=== PATIENT | male | born 1940 | race Caucasian/White ===

== ENCOUNTER 2016-08-14 18:40 | Emergency (ER) | payer OTHER ==
--- NOTE | 2016-08-14 18:55 | EDPHY ---
HPI/HX/ROS/PE/MDM Narrative: CHIEF COMPLAINT: "Watery vision" HPI: This patient is a 76-year-old male who presents to the Emergency Department following a brief 2-3 minute episode of right-sided vision changes at 1530 this afternoon while shopping. He describes the vision change as blurriness, "as though his eye was underwater." He denies any additional complaints at that time; no headache, pain to his eye, weakness, numbness, gait or speech changes. At time of presentation, he states that he feels normal and denies any residual vision changes. He was diagnosed with a central retinal vein occlusion in the right eye in May 2016 which was evaluated by an permit coordinator but not treated at that time. The CRVO presented with eye floaters; he describes today's episode as very different. REVIEW OF SYSTEMS: Aside from elements discussed in the HPI, a comprehensive 10-point review of systems was reviewed and is negative. PMH: 1. Central retinal vein occlusion, May 2016 2. Hypothyroid No history of diabetes. SOCIAL HISTORY: at bedside. Retired physicist. PHYSICAL EXAM: General:Patient is alert, in no acute distress. ENT:Eyes are normal to inspection. ENT inspection normal. Neck: Normal inspection. Full range of motion. Respiratory:No respiratory distress. Breath sounds normal bilaterally. Cardiovascular: Regular rate and rhythm. Strong peripheral pulses. Normal cap refill. Abdomen:The abdomen is nontender to palpation. There are no peritoneal signs. There are normal bowel sounds. Back: Normal to inspection. No tenderness to palpation. Skin: Normal color. No rash. Warm and dry. Extremities: Normal appearance. Full range of motion. Neuro: Oriented x3. Normal motor function. Normal sensory function. ED Course: This 76-year-old male presents following brief episode of right vision change this afternoon since subsided. He has no neurological deficits on exam. EOMI, pupils are equal, round and reactive. I discussed with him that he likely did not experience a TIA - the concern which prompted him to present to the ED - given that he did not have a right visual field cut at the time of his complaint. Given the patient's history of central retinal vein occlusion to the same eye, I will proceed with consultation with on-call permit coordinator to determine next steps. 191: Consultation with Dr. Cooley, ophthalmology, who recommends obtaining an ESR and CRP. Labs obtained. CRP is negative. ESR at 5, hematocrit at 43.7. I discussed lab results and follow-up instructions with the patient. The patient has a follow-up with his permit coordinator scheduled for later this month. He will call his permit coordinator tomorrow. He will be discharged home in good condition with customary return precautions. - Data Points Laboratory Results: Laboratory Results 08/14/16 19:24 08/14/16 08/14/16 19:24 19:24 Hct 43.7 % % (40.0-51.0) ESR 5 MM/HR MM/HR (0-20) C-Reactive Protein < 5.0 mg/L mg/L (<10.0) General Time Seen by Provider: 08/14/16 18:54 Initial Vital Signs: Initial Vital Signs Temperature (C) 36.6 C 08/14/16 18:45 Heart Rate 88 08/14/16 18:45 Respiratory Rate 14 08/14/16 18:45 Blood Pressure 124/89 H 08/14/16 18:45 O2 Sat (%) 96 08/14/16 18:45 O2 Delivery Mode Room Air Allergies/Adverse Reactions: No Known Allergies Allergy (Unverified 07/20/09 15:12) Home Medications: Medication Instructions Recorded [facility] 04/21/10 Departure - Departure Disposition: Home, Routine, Self-Care Clinical Impression: Vision changes Condition: Good Instructions: Blurred Vision (ED) Additional Instructions: 1. Call your permit coordinator tomorrow to discuss scheduling a follow-up appointment for reevaluation. 2. Return to the Emergency Department with headache, numbness or weakness, recurrence of your blurred vision, or for other serious concerns. Referrals: Saud Yee MD [Primary Care Provider] - As per Instructions Report Scribed for: Charles Duffy Report Scribed by: Bonnie Kaiser Date of Report: 08/14/16 Time of Report: 18:55 Physician Review and Approval Statement: Portions of this note were transcribed by an ED scribe. I personally performed the history, physical exam, and medical decision making; and confirm the accuracy of the information in the transcribed note.
[2016-08-14 19:31] LABS: HEMATOCRIT 43.7 % (40.0-51.0)
[2016-08-14 20:08] VITALS: BP 121/80; PULSE 70; RESP 16; TEMP 98.1; O2SAT 97
== END 2016-08-14 20:08 | disposition home or self-care (01) ==
DX: H57.8 Other specified disorders of eye and adnexa (principal)

== ENCOUNTER 2017-10-10 10:09 | Day surgery (SDC) | payer OTHER ==
[2017-10-10] MEDS ORDERED: HEPARIN 10,000 UNIT/10 ML MDV (1,000 UNIT/ML) IVP PRN (10:16)
[2017-10-10] MEDS ORDERED: fentaNYL 100 MCG/2 ML INJ IVP PRN (10:16)
[2017-10-10] MEDS ORDERED: GLUCAGON HCL 1 MG VIAL IVP PRN (10:16)
[2017-10-10] MEDS ORDERED: MIDAZOLAM 2 MG/2 ML VIAL IVP PRN (10:16)
[2017-10-10] MEDS ORDERED: PROTAMINE SULFATE 50 MG/5 ML VIAL IVP PRN (10:16)
[2017-10-10] MEDS ORDERED: ALTEPLASE 2 MG VIAL IVP PRN (10:16)
[2017-10-10] MEDS ORDERED: FLUMAZENIL 0.5 MG/5 ML MDV IVP PRN (10:16)
[2017-10-10] MEDS ORDERED: MEPERIDINE 25 MG/ML SYR IVP PRN (10:16)
[2017-10-10] MEDS ORDERED: NALOXONE HCL 0.4 MG/ML INJ IVP PRN (10:16)
[2017-10-10] MEDS ORDERED: FLUMAZENIL 0.5 MG/5 ML MDV IVP ONE (10:19)
[2017-10-10] MEDS ORDERED: MIDAZOLAM 2 MG/2 ML VIAL ONE (10:19)
[2017-10-10] MEDS ORDERED: NALOXONE HCL 0.4 MG/ML INJ ONE (10:19)
[2017-10-10] MEDS ORDERED: fentaNYL 100 MCG/2 ML INJ ONE (10:19)
[2017-10-10] MEDS ORDERED: NS 1,000 ML IV SCH (10:30)
--- NOTE | 2017-10-10 11:20 | PDGENHP ---
History & Physical Chief Complaint: RETROPERITONEAL LN History of Present Illness: INCIDENTAL FINDING OF ENLARGED RETROPERITONEAL LN. Pertinent Past, Social, Family History: H/O SQUAMOUS CELL CARCINOMA OF SKIN, PAPILLARY THYROID CANCER S/P THYROIDECTOMY. RT HAND SURGERY Relevant Physical Exam: LARGEST LN IS ON LT SIDE OF AORTA. Cardiorespiratory Assessment: RRR, CTA
--- NOTE | 2017-10-10 11:25 | PDPROPOC ---
Sedation Plan of Care Sedation Plan of Care: vital signs stable, mental status noted, patient educated of risks, benefits, alternatives, patient can tolerate sedation ASA Classification: ASA 3 Planned drugs: fentanyl, midazolam Mallampati Score: Class 1 Mallampati Reference Image: Patient passed 3-3-2 rule?: Yes
[2017-10-10] MEDS ORDERED: ONDANSETRON 4 MG/2 ML VIAL IVP PRN (12:56)
[2017-10-10] MEDS ORDERED: ACETAMINOPHEN 325 MG TAB PO PRN (12:56)
--- NOTE | 2017-10-10 12:56 | PDRADPN ---
Radiology Procedure Note Date of Procedure: 10/10/17 Radiologist: Ana Nettles Anesthesia: IV Sedation Pre-op Diagnosis: enlarged lymph nodes Post-op Diagnosis: same Indication: unknown cause Procedure: CT guided retroperitoneal LN biopsy Inf/Abcess present in the surg proc area at time of surgery?: No
[2017-10-10 14:03] VITALS: BP 99/70
== END 2017-10-10 14:18 | disposition home or self-care (01) ==
LOC: FIMAGING 10:09
PROVIDERS: ATTEND Specialist
PROC: 07BB4ZX Excision of Mesenteric Lymphatic, Percutaneous Endoscopic Approach, Diagnostic (ICD-10-PCS; principal; 2017-10-10 12:58)
DX: R59.9 Enlarged lymph nodes, unspecified (principal); Z85.828 Personal history of other malignant neoplasm of skin; Z85.850 Personal history of malignant neoplasm of thyroid
CPT/HCPCS: 88184-90; 88185-91; J2250; J2310; J3010

== ENCOUNTER 2018-05-21 17:39 | Inpatient (IN) | payer BC, OTHER ==
--- NOTE | 2018-05-21 18:19 | EDPHY ---
H & P Stated Complaint: slurred speech yesterday Time Seen by Provider: 05/21/18 18:05 HPI/ROS: CHIEF COMPLAINT: Slurred speech yesterday HISTORY OF PRESENT ILLNESS: The patient is a 77-year-old man who developed slurred speech yesterday for about 15 min. It resolved spontaneously. He states that he was doing Pilates when he was looking up and felt vertiginous. He states that this is not unusual for him but that soon thereafter he developed slurred speech. No aphasia. No facial weakness or numbness. No arm or leg involvement. No vision changes. His symptoms resolved after 15 min. No history of cardiac disease or arrhythmias. No history of vascular disease. 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 Severity: Moderate Modifying factors: Resolved spontaneously REVIEW OF SYSTEMS: Constitutional: denies: chills, fever, recent illness, recent injury EENTM: denies: blurred vision, double vision, nose congestion Respiratory: denies: cough, shortness of breath Cardiac: denies: chest pain, irregular heart rate, lightheadedness, palpitations Gastrointestinal/Abdominal: denies: abdominal pain, diarrhea, nausea, vomiting, blood streaked stools Genitourinary: denies: dysuria, frequency, hematuria, pain Musculoskeletal: denies: joint pain, muscle pain Skin: denies: lesions, rash, jaundice, bruising Neurological: See HPI denies: headache, numbness, paresthesia, tingling, dizziness, weakness Hematologic/Lymphatic: denies: blood clots, easy bleeding, easy bruising Immunologic/allergic: denies: HIV/AIDS, transplant 10 systems reviewed and negative except as noted EXAM: GENERAL: Well-appearing, well-nourished and in no acute distress. HEAD: Atraumatic, normocephalic. EYES: Pupils equal round and reactive to light, extraocular movements intact, sclera anicteric, conjunctiva are normal. ENT: TMs normal, nares patent, oropharynx clear without exudates. Moist mucous membranes. NECK: Normal range of motion, supple without lymphadenopathy or JVD. LUNGS: Breath sounds clear to auscultation bilaterally and equal. No wheezes rales or rhonchi. HEART: Regular rate and rhythm without murmurs, rubs or gallops. ABDOMEN: Soft, nontender, normoactive bowel sounds. No guarding, no rebound. No masses appreciated. BACK: No CVA tenderness, no spinal tenderness, step-offs or deformities EXTREMITIES: Normal range of motion, no pitting or edema. No clubbing or cyanosis. NEUROLOGICAL: Cranial nerves II through XII grossly intact. Normal speech, normal gait. 5/5 strength, normal movement in all extremities, normal sensation , normal reflexes PSYCH: Normal mood, normal affect. SKIN: Warm, dry, normal turgor, no visible rashes or lesions. Source: Patient Exam Limitations: No limitations - Personal History Current Tetanus/Diphtheria Vaccine: Yes Current Tetanus Diphtheria and Acellular Pertussis (TDAP): Yes - Medical/Surgical History Hx Asthma: No Hx Chronic Respiratory Disease: No Hx Diabetes: No Hx Cardiac Disease: No Hx Renal Disease: No Hx Cirrhosis: No Hx Alcoholism: No Hx HIV/AIDS: No Hx Splenectomy or Spleen Trauma: No Other PMH: thyroidectomy, diverticulosis - Family History Significant Family History: No pertinent family hx - Social History Smoking Status: Never smoked Alcohol Use: None Constitutional: Initial Vital Signs Temperature (C) 36.9 C 05/21/18 17:56 Heart Rate 71 05/21/18 17:56 Respiratory Rate 16 05/21/18 17:56 Blood Pressure 130/104 H 05/21/18 17:56 O2 Sat (%) 96 05/21/18 17:56 O2 Delivery Mode Room Air Allergies/Adverse Reactions: No Known Allergies Allergy (Verified 05/21/18 17:54) Home Medications: Medication Instructions Recorded Calcium Carbonate 1,000 mg PO DAILY 10/03/17 Cholecalciferol Vit D3 [Vitamin D3 1,000 iunits PO HS 10/03/17 (*)] Citrucel 1 tbs PO BID 10/03/17 Levothyroxine [Synthroid 75 mcg 75 mcg PO HS 10/03/17 (*)] Omeprazole 20 mg PO HS 10/03/17 Sildenafil Citrate 100 mg PO VALENCIA 10/03/17 Calcium Carbonate [Tums 500MG (*)] 1,000 mg PO HS 05/21/18 Medical Decision Making - Diagnostics EKG Interpretation: An EKG obtained and was read and documented in trace view. Please see trace view for full reading and report. Sinus rhythm, no acute ischemic changes Imaging Results: Imaging Impressions Brain MRI 05/21/18 18:14 Impression: 1. Recent infarcts involving right frontal lobe with single cortical infarct right parietal lobe as detailed above. These are in the MCA distribution and probably represent embolic phenomenon. 2. No additional intracranial abnormality seen. If symptoms worsen, additional imaging may be necessary. Findings discussed with Mykel Hobbs M.D. at 20:26 hour, 05/21/2018. Head MRA 05/21/18 18:24 Impression: Normal MRA of the [place] as detailed above. Findings discussed with Mykel Hobbs M.D. at 20:26 hour, 05/21/2018. Neck MRA 05/21/18 18:24 Impression: 1. Normal MRA of the carotid and vertebral system. Incidental tortuosity of the distal ICA bilaterally. Note: All stenosis measurements are based on NASCET criteria. Findings discussed with Mykel Hobbs M.D. at 20:26 hour, 05/21/2018. Imaging: Discussed imaging studies w/ motorcyles final inspector Radiologist ED Course/Re-evaluation: I did [facility] [place] hospitalist because of the patient's vertigo when looking up. He states that this is typical for him associates it with BPV. Will obtain MRA of his neck. If this is clear he is safe for outpatient workup with echocardiogram etc. 8:40 p.m. the patient has 4 or 5 subcortical infarcts on right MCA distribution. He remains asymptomatic and has been eating lucian 4s in the room. I spoke with Dr. Liao who will admit for further workup. I have paged Neurosurgery to discussed possibility anticoagulation. 8:50 p.m. I discussed the case with [facility]. They do not recommend anticoagulants at this time. Differential Diagnosis: Partial list of the Differential diagnosis considered include but were not limited to; TIA, CVA, carotid artery thrombus and although unlikely based on the history and physical exam, I also considered endocarditis, cancer. - Data Points Laboratory Results: Laboratory Results 05/21/18 18:34 05/21/18 18:34 05/21/18 05/21/18 05/21/18 19:05 18:37 18:34 WBC RBC Hgb POC Hgb 15.3 gm/dL gm/dL (13.7-17.5) Hct POC Hct 45 % % (40-51) MCV MCH MCHC RDW Plt Count MPV Neut % (Auto) Lymph % (Auto) [place] % (Auto) Eos % (Auto) Baso % (Auto) Nucleat RBC Rel Count Absolute Neuts (auto) Absolute Lymphs (auto) Absolute Monos (auto) Absolute Eos (auto) Absolute Basos (auto) Absolute Nucleated RBC Immature Gran % Immature Gran # PT INR POC Sodium 142 mEq/L mEq/L (135-145) Sodium 135 mEq/L mEq/L (135-145) POC Potassium 3.8 mEq/L mEq/L (3.3-5.0) Potassium 4.0 mEq/L mEq/L (3.5-5.2) POC Chloride 105 mEq/L mEq/L (97-110) Chloride 106 mEq/L mEq/L (97-110) Carbon Dioxide 23 mEq/l mEq/l (22-31) POC Total CO2 25 mEq/L mEq/L (22-31) Anion Gap 6 mEq/L mEq/L (6-14) POC BUN 20 mg/dL mg/dL (7-23) BUN 22 mg/dL mg/dL (7-23) Creatinine 1.0 mg/dL mg/dL (0.7-1.3) POC Creatinine 1.0 mg/dL mg/dL (0.7-1.3) Estimated GFR > 60 Glucose 98 mg/dL mg/dL (70-100) POC Glucose 101 mg/dL H mg/dL (70-100) Calcium 9.1 mg/dL mg/dL (8.5-10.4) POC Troponin I 0.00 ng/mL ng/mL (0.00-0.08) 05/21/18 05/21/18 18:34 18:34 WBC 5.09 10^3/uL 10^3/uL (3.80-9.50) RBC 4.75 10^6/uL 10^6/uL (4.40-6.38) Hgb 15.1 g/dL g/dL (13.7-17.5) POC Hgb Hct 44.4 % % (40.0-51.0) POC Hct MCV 93.5 fL fL (81.5-99.8) MCH 31.8 pg pg (27.9-34.1) MCHC 34.0 g/dL g/dL (32.4-36.7) RDW 13.7 % % (11.5-15.2) Plt Count 200 10^3/uL 10^3/uL (150-400) MPV 9.8 fL fL (8.7-11.7) Neut % (Auto) 72.3 % % (39.3-74.2) Lymph % (Auto) 13.0 % L % (15.0-45.0) Gregory % (Auto) 10.6 % % (4.5-13.0) Eos % (Auto) 2.9 % % (0.6-7.6) Baso % (Auto) 1.0 % % (0.3-1.7) Nucleat RBC Rel Count 0.0 % % (0.0-0.2) Absolute Neuts (auto) 3.68 10^3/uL 10^3/uL (1.70-6.50) Absolute Lymphs (auto) 0.66 10^3/uL L 10^3/uL (1.00-3.00) Absolute Monos (auto) 0.54 10^3/uL 10^3/uL (0.30-0.80) Absolute Eos (auto) 0.15 10^3/uL 10^3/uL (0.03-0.40) Absolute Basos (auto) 0.05 10^3/uL 10^3/uL (0.02-0.10) Absolute Nucleated RBC 0.00 10^3/uL 10^3/uL (0-0.01) Immature Gran % 0.2 % % (0.0-1.1) Immature Gran # 0.01 10^3/uL 10^3/uL (0.00-0.10) PT 13.2 SEC SEC (12.0-15.0) INR 1.04 (0.83-1.16) POC Sodium Sodium POC Potassium Potassium POC Chloride Chloride Carbon Dioxide POC Total CO2 Anion Gap POC BUN BUN Creatinine POC Creatinine Estimated GFR Glucose POC Glucose Calcium POC Troponin I Medications Given: Levothyroxine Sodium (Synthroid) 75 mcg PO HS IVIS Stop: 11/17/18 21:59 Last Admin: 05/21/18 22:36 Dose: 75 mcg Point of Care Test Results: Chemistry 05/21/18 05/21/18 19:05 18:37 POC Sodium 142 mEq/L mEq/L (135-145) POC Potassium 3.8 mEq/L mEq/L (3.3-5.0) POC Chloride 105 mEq/L mEq/L (97-110) POC Total CO2 25 mEq/L mEq/L (22-31) POC BUN 20 mg/dL mg/dL (7-23) POC Creatinine 1.0 mg/dL mg/dL (0.7-1.3) POC Glucose 101 mg/dL H mg/dL (70-100) POC Troponin I 0.00 ng/mL ng/mL (0.00-0.08) ISTAT H&H 05/21/18 18:37 POC Hgb 15.3 gm/dL gm/dL (13.7-17.5) POC Hct 45 % % (40-51) Departure - Departure Disposition: [facility] Inpatient Acute Clinical Impression: Acute ischemic stroke Condition: Fair
[2018-05-21] MEDS ORDERED: GADOBUTROL 10 ML VIAL IVP ONE (18:28)
--- NOTE | 2018-05-21 18:41 | CPEKG ---
Test Reason : OPEN Blood Pressure : / mmHG Vent. Rate : 078 BPM Atrial Rate : 078 BPM P-R Int : 212 ms QRS Dur : 089 ms QT Int : 415 ms P-R-T Axes : 059 062 069 degrees QTc Int : 473 ms Sinus rhythm Atrial premature complex Confirmed by Evelio Fontana ([id number]) on 05/21/2018 6:39:59 PM Referred By: EVELIO FONTANA Confirmed By:Evelio Fontana
[2018-05-21 18:46] LABS: PLATELET COUNT 200 10^3/uL (150-400)
[2018-05-21 19:04] LABS: INR 1.04 (0.83-1.16); PROTIME(PATIENT) 13.2 SEC (12.0-15.0)
[2018-05-21] MEDS ORDERED: oxyCODONE IR 5 MG TAB PO PRN (21:41)
[2018-05-21] MEDS ORDERED: HYDROmorphONE/DILAUDID 1 MG/ML INJ IVP PRN (21:41)
[2018-05-21] MEDS ORDERED: ONDANSETRON DISINTEGRATING 4 MG TAB PO PRN (21:41)
[2018-05-21] MEDS ORDERED: ACETAMINOPHEN 325 MG TAB PO PRN (21:41)
[2018-05-21] MEDS ORDERED: ONDANSETRON 4 MG/2 ML VIAL IVP PRN (21:41)
[2018-05-21] MEDS ORDERED: HYDROCODONE/APAP 5/325 TAB PO PRN (21:41)
[2018-05-21] MEDS ORDERED: LEVOTHYROXINE 75 MCG TAB PO SCH (22:00)
--- NOTE | 2018-05-21 22:51 | PDGENHP ---
History and Physical - Chief Complaint slurred speech - History of Present Illness 77 yo M with PMH of thyroid cancer, BPH and GERD presenting with complaints of slurred speech yesterday for about 15 minutes that has since resolved. He notes he was doing pilates exercises and felt fine, shortly after that he was looking up to fix a clock and became vertiginous after that. He notes that frequently when he leans his head back like that he will get an episode of vertigo. He went to find his and tell her about his symptoms and then had issues with inability to speak--he notes he knew what he wanted to say but his speech came out garbled and nonsensical. This lasted about 15 minutes and resolved. He states the remainder of the evening he felt fine-he went shopping, had sex with his and no other issues were noticed. He denies any recurrent symptoms today. He has not had any weakness or numbness anywhere, or chest pain, sob, fever, chills etc. History Information - Allergies/Home Medication List Allergies/Adverse Reactions: No Known Allergies Allergy (Verified 05/21/18 17:54) Home Medications: Calcium Carbonate 1,000 mg PO DAILY 10/03/17 [Last Taken 10/09/17] Cholecalciferol Vit D3 [Vitamin D3 (*)] 1,000 iunits PO HS 10/03/17 [Last Taken 05/20/18] Citrucel 1 tbs PO BID 10/03/17 [Last Taken 10/09/17] Levothyroxine [Synthroid 75 mcg (*)] 75 mcg PO HS 10/03/17 [Last Taken 05/20/18] Omeprazole 20 mg PO HS 10/03/17 [Last Taken 05/20/18] Sildenafil Citrate 100 mg PO VALENCIA 10/03/17 [Last Taken 05/20/18] Calcium Carbonate [Tums 500MG (*)] 1,000 mg PO HS 05/21/18 [Last Taken 05/20/18] I have personally reviewed and updated: family history, medical history, social history, surgical history - Past Medical History cancer (thyroid and skin), GERD Additional medical history: BPH. kidney stones. hypothyroid - Surgical History Reports: appendectomy, cancer surgery (partial thyroidectomy) Additional surgical history: vasectomy. pilonidal cyst removal - Family History Positive for: non-pertinent - Social History Smoking Status: Never smoked Alcohol Use: Occasionally Drug Use: None Additional social history: , lives with Review of Systems Review of Systems: ROS: 10pt was reviewed & negative except for what was stated in HPI & below Physical Exam Physical Exam: Temp Pulse Resp BP Pulse Ox 36.9 C 90 20 132/78 H 94 05/21/18 17:56 05/21/18 20:50 05/21/18 20:50 05/21/18 20:50 05/21/18 20:50 Constitutional: no apparent distress, appears nourished Eyes: PERRL, anicteric sclera Ears, Nose, Mouth, Throat: moist mucous membranes, hearing normal Cardiovascular: regular rate and rhythym, no murmur, rub, or gallop, No edema Respiratory: no respiratory distress, no rales or rhonchi Gastrointestinal: normoactive bowel sounds, soft, non-tender abdomen Genitourinary: no bladder tenderness Skin: warm, normal color Musculoskeletal: full muscle strength Neurologic: AAOx3 Psychiatric: interacting appropriately, not anxious, not encephalopathic Lab Data & Imaging Review 05/21/18 18:34 05/21/18 18:34 WBC 5.09 10^3/uL (3.80-9.50) 05/21/18 18:34 RBC 4.75 10^6/uL (4.40-6.38) 05/21/18 18:34 Hgb 15.1 g/dL (13.7-17.5) 05/21/18 18:34 POC Hgb 15.3 gm/dL (13.7-17.5) 05/21/18 18:37 Hct 44.4 % (40.0-51.0) 05/21/18 18:34 POC Hct 45 % (40-51) 05/21/18 18:37 MCV 93.5 fL (81.5-99.8) 05/21/18 18:34 MCH 31.8 pg (27.9-34.1) 05/21/18 18:34 MCHC 34.0 g/dL (32.4-36.7) 05/21/18 18:34 RDW 13.7 % (11.5-15.2) 05/21/18 18:34 Plt Count 200 10^3/uL (150-400) 05/21/18 18:34 MPV 9.8 fL (8.7-11.7) 05/21/18 18:34 Neut % (Auto) 72.3 % (39.3-74.2) 05/21/18 18:34 Lymph % (Auto) 13.0 % (15.0-45.0) L 05/21/18 18:34 [place] % (Auto) 10.6 % (4.5-13.0) 05/21/18 18:34 Eos % (Auto) 2.9 % (0.6-7.6) 05/21/18 18:34 Baso % (Auto) 1.0 % (0.3-1.7) 05/21/18 18:34 Nucleat RBC Rel Count 0.0 % (0.0-0.2) 05/21/18 18:34 Absolute Neuts (auto) 3.68 10^3/uL (1.70-6.50) 05/21/18 18:34 Absolute Lymphs (auto) 0.66 10^3/uL (1.00-3.00) L 05/21/18 18:34 Absolute Monos (auto) 0.54 10^3/uL (0.30-0.80) 05/21/18 18:34 Absolute Eos (auto) 0.15 10^3/uL (0.03-0.40) 05/21/18 18:34 Absolute Basos (auto) 0.05 10^3/uL (0.02-0.10) 05/21/18 18:34 Absolute Nucleated RBC 0.00 10^3/uL (0-0.01) 05/21/18 18:34 Immature Gran % 0.2 % (0.0-1.1) 05/21/18 18:34 Immature Gran # 0.01 10^3/uL (0.00-0.10) 05/21/18 18:34 PT 13.2 SEC (12.0-15.0) 05/21/18 18:34 INR 1.04 (0.83-1.16) 05/21/18 18:34 POC Sodium 142 mEq/L (135-145) 05/21/18 18:37 Sodium 135 mEq/L (135-145) 05/21/18 18:34 POC Potassium 3.8 mEq/L (3.3-5.0) 05/21/18 18:37 Potassium 4.0 mEq/L (3.5-5.2) 05/21/18 18:34 POC Chloride 105 mEq/L (97-110) 05/21/18 18:37 Chloride 106 mEq/L (97-110) 05/21/18 18:34 Carbon Dioxide 23 mEq/l (22-31) 05/21/18 18:34 POC Total CO2 25 mEq/L (22-31) 05/21/18 18:37 Anion Gap 6 mEq/L (6-14) 05/21/18 18:34 POC BUN 20 mg/dL (7-23) 05/21/18 18:37 BUN 22 mg/dL (7-23) 05/21/18 18:34 Creatinine 1.0 mg/dL (0.7-1.3) 05/21/18 18:34 POC Creatinine 1.0 mg/dL (0.7-1.3) 05/21/18 18:37 Estimated GFR > 60 05/21/18 18:34 Glucose 98 mg/dL (70-100) 05/21/18 18:34 POC Glucose 101 mg/dL (70-100) H 05/21/18 18:37 Calcium 9.1 mg/dL (8.5-10.4) 05/21/18 18:34 POC Troponin I 0.00 ng/mL (0.00-0.08) 05/21/18 19:05 Visualized and Interpreted imaging results: Yes Interpretation: head/neck MRA: normal. brain MRI: 4 subacute infarcts in MCA distribution Visualized and Interpreted EKG results: Yes EKG Interpretation: Positive for: normal sinsus rhythm EKG additional interpertation: ventricular trigeminy Assessment & Plan Assessment: Acute ischemic stroke (Acute) 77 yo M with PMH of thyroid cancer presenting with episode of dysphasia yesterday found to have subacute cva # acute/subacute CVA: with 4 ischemic foci in MCA distribution c/w embolic phenomena. No significant vascular findings on head/neck MRA. Tele monitoring notable for irregular rhythm but on ECG not consistent with a fib--sinus arrhytmia and ventrigular trigeminy noted. Given aspirin, will monitor on tele, obtain echo in am, neurology consulted, pt/ot. Sxs currently are not present. # htn: very mild increase in BP so far, will monitor # thyroid cancer: s/p thyroidectomy, followed by oncology # GERD: continue PPI # IP status, given stroke will require > 48 hours stay for eval/mgmt of above Patient new to my care. Old records reviewed ad summarized as above. CAre plan reviewed with ER doctor, further hx obtained from patients present at bedside.
--- NOTE | 2018-05-22 07:08 | PDMN ---
Medical Necessity Medical necessity: Pt meets inpt criteria per MD order and [facility] M-83, Stroke: Ischemic, 2 days. 77 y/o presenting w/episode of dysphasia found to have acute/ subacute CVA: 4 ischemic foci in MCA distribution consistent w/embolic phenomena , SR w/ventricular trigeminy on tele. Anticipate>2MN form ongoing eval/ management of above.
[2018-05-22] MEDS ORDERED: ASPIRIN 81 MG CHEWABLE TAB PO SCH (09:00)
[2018-05-22] MEDS ORDERED: ENOXAPARIN 40 MG/0.4 ML SYR SC SCH (09:00)
[2018-05-22] MEDS ORDERED: PANTOPRAZOLE SODIUM 40 MG TAB PO SCH (09:00)
--- NOTE | 2018-05-22 10:16 | GCON ---
[f rep st] CONSULTATION NEUROLOGY CONSULT REFERRING PHYSICIAN: Meghan Lockwood MD CHIEF COMPLAINT: Stroke. HISTORY OF PRESENT ILLNESS: The patient is a very pleasant gentleman who does not take any antiplatelet therapy daily. He is on a PPI and thyroid medication. Monday morning after doing Pilates with his , several minutes had passed, and he then felt a little vertigo when hanging or adjusting a wall clock higher up. This is not unusual for him; however, afterwards, he developed slurred speech apparently for 15 minutes, but it spontaneously resolved. He did not think much of this but then decided to come to the ER around 36 hours later last night at 6 p.m. He was completely asymptomatic for the last 36 hours and had a full evaluation. [facility] was also consulted. Essentially, as the patient was 36 hours after the initial symptoms , therefore thrombolysis was not indicated. He did have an MRI brain, which showed recent multiple small infarcts in the right frontal and right parietal lobe. MRA of the head and neck was negative. He has been on telemetry overnight, and apparently, there has been no atrial fibrillation. He does not have any significant risk factors in terms of being a heavy drinker, obstructive sleep apnea, or previous coronary disease. He denies palpitations. Echo has been done and is pending. He is completely asymptomatic now and feels well. REVIEW OF SYSTEMS: 10-point review of systems was done only pertinent to the HPI. For past medical history, social history, family history, home medication, allergies, see Dr. Lockwood's note. PHYSICAL EXAM: VITAL SIGNS: Blood pressure is 117/69, temperature 36.7, heart rate in the 70s. GENERAL: Patient is awake and alert, very pleasant gentleman. HIGHER MENTAL FUNCTION: He is lucid. No aphasia. Names 5/5, follows commands 5/5, repeats 5/5. Cranial nerve exam normal 2 through 7, 11, and 12. MOTOR: He has normal strength throughout. He did have some mild weakness with the left shoulder, external rotation, but that, he thinks, is from his previous shoulder surgery. There is no other focal weakness detected. Muscle tone is normal. SENSORY: Normal throughout. COORDINATION: Normal. IMPRESSION/PLAN: 1. Cryptogenic Stroke. Overall, my impression is he had a proximal embolus, which probably was occluding a larger vessel for those 15 minutes he was symptomatic, and then, he autolysed the clot with resolution of symptoms. The debris of the clot then likely caused the small multifocal, silent cortical infarcts. We discussed at length. He has been started on aspirin 325 mg daily, coated, with meals. We discussed risks, benefits, and alternatives of medication. His LDL is above 70. Therefore, statin therapy is also recommended. He has had a echocardiogram this morning. Results are pending. If there are any significant abnormalities, please contact Neurology service to review. If there is no significant abnormality, then he can likely be discharged home with outpatient cardiology followup for a 30-day event monitor. If the 30-day event monitor is negative for paroxysmal atrial fibrillation, then an implantable property assessment monitor would be indicated for cryptogenic stroke. I will see him back in the office in 8-10 weeks to review all of the above. We will continue to follow as needed while the patient is in the hospital. Please do not hesitate to call if there are any questions or change in neurologic status of this patient. Seventy total minutes floor time; over 50% counseling and coordination of care. /[id number]/MODL MTDD
--- NOTE | 2018-05-22 13:36 | GDS ---
[f rep st] DISCHARGE SUMMARY DISCHARGE DIAGNOSES: 1. Cryptogenic stroke. 2. Hypertension. 3. Thyroid cancer. CONSULTATIONS: Ron Bourgeois MD, Neurology. STUDIES AND PROCEDURES DONE: 1. MRA of the neck and head. 2. Brain MRI. 3. Echocardiogram. PHYSICAL EXAM: GENERAL: The patient is alert. VITAL SIGNS: Afebrile at 36.6, pulse 83, respirator y rate 25, blood pressure 97/62, and saturating 93% on room air. I have seen and evaluated the patie nt on the day of discharge. HOSPITAL COURSE: The patient is a 77-year-old male, who presented to the emergency room with complai nts of vertigo-like symptoms and slurred speech. He was evaluated during this hospitalization and di agnosed with: 1. Cryptogenic stroke. MRA of the head and neck were performed, as well as an MRI of the brain. He has no residual symptoms. He has been started on a regular aspirin. It has been recommended that h e start on a statin. However, he wishes to decline at this time and follow with his primary care lula haro. Echocardiogram was performed. The patient will have a cardiac exercise physiologist device arranged prior to the disposition to assure he does not suffer from any underlying arrhythmias. He will follow shilpa Bourgeois in the outpatient setting. 2. Hypertension. This is stable. 3. Thyroid cancer. He is followed by Outpatient Oncology. DISPOSITION: The patient will be discharged home independently with his . Pending studies at th e time of disposition include echocardiogram. DISCHARGE MEDICATIONS: Please refer to EMR form. I have started the patient on a regular aspirin. He has declined statin therapy at this time. FOLLOWUP: Followup will be with his primary care doctor, Saud Hernandez, as well as Dr. Ron thompson nd Cardiology. I have discussed the patient's disposition with Dr. Bourgeois, as well as Cardiology, who a re both in agreement with this plan. TIME SPENT ON DISCHARGE: I have spent greater than 35 minutes in the care, coordination, and managem ent of this patient's discharge. /[id number]/MODL
--- NOTE | 2018-05-22 15:09 | ECHO ---
[email or web address] [address] Main: [phone] Echocardiography Examination Transthoracic Name: SEJAL MCCRAY MR#: [id number] Study Date: 05/22/2018 Study Time: 08:51 AM Date of : 1940 Age: 77 year(s) Height: 188 cm (74 in.) Weight: 88.91 kg (196 lb.) BSA: 2.15 m2 Gender: Male Examination: Echo with Agitated Saline Contrast: Image Quality: Adequate Rhythm: Heart Rate: 80 bpm BP: 117 mmHg/69 mmHg Indication: Ischemic Stroke Procedure Staff Referring Physician: [employer] Business Representative: Megan Strong [facility] Reading Physician: Brandon Dial MD Requesting Provider: Indication: Ischemic Stroke Measurements Chambers AV/MV Label Value Normal Value Label Value Normal Value IVSd, 2D 1.2 cm (0.6cm - 1.1cm) AR PHT 0.56 s LVDd, 2D 4.5 cm (4.2cm - 5.9cm) AR PHT 563 ms LVDs, 2D 2.9 cm (2.1cm - 4cm) AR Vmax 4.4 m/s LVEF, 2D 63 % (54% - 74%) AV PGmax 5 mmHg LVEF, BP 59 % (55% - 70%) AV PGmean 3 mmHg LVEF, MOD2 65 % (55% - 70%) AV Vmax 1.15 m/s LVEF, MOD4 57 % (55% - 70%) CEE D (continuity eq. 3 cm2 LVOT PGmean 2 mmHg VTI) LVOT Vmean 0.73 m/s MV A Vmax 1.36 m/s LVOTd 2 cm (1.9cm - 2.1cm) MV DT 232 ms LVPWd, 2D 1.3 cm (0.6cm - 1cm) MV E' lateral 0.08 m/s RVDd, 2D 4.2 cm (1.9cm - 3.8cm) MV E' mean 0.06 m/s LADs, 2D 4 cm (3cm - 4cm) MV E' septal 0.05 m/s LAESV index, MOD2 27.9 ml/m2 MV E Vmax 0.63 m/s RA Area 29.8 cm2 MV E/A 0.46 Additional Vessels MV E/E' lateral 8 Label Value Normal Value MV E/E' mean 9.69 AoAsc 3.6 cm MV E/E' septal 12.2 (0.45 - 1.25) AoRoot, 2D 3.4 cm (1.4cm - 2.6cm) MV PGmax 9 mmHg IVC 1.6 cm (1.2cm - 2.3cm) MV PGmean 4 mmHg Patient: SEJAL MCCRAY Study Date: 05/22/2018 Page 1 of 3 08:51 AM MV PHT 0.07 s MV PHT 69 ms MV VTI 35.6 cm MVA D (continuity eq.) 1.9 cm2 MVA PHT 3.2 cm2 TV/PV Label Value Normal Value RA Pressure 5 mmHg RVSP 48 mmHg TR Pmax 43 mmHg TR Vmax 3.27 m/s PV PGmax 6 mmHg PV Vmax, Caliper 1.19 m/s (0.6m/s - 0.9m/s) Conclusions A definite cardiac source of embolus was not identified on this study although the study is positive for cardiac shunt and the patient may be at risk for paradoxical embolus. Left Ventricle: Normal global systolic left ventricular function. EF range is estimated at 55 % - 60 %. There is mild concentric left ventricular hypertrophy. Cannot determine LAP and Diastolic Dysfunction Grade. IAS: An agitated saline study was performed and was positive for intracardiac shunting. Mitral Valve: Mild mitral regurgitation. There is mitral thickening. Aortic Valve: Mild to moderate aortic regurgitation is present. There is aortic sclerosis present. Tricuspid Valve: Right Ventricular systolic pressure is measured at 48 mmHg. Pulmonary artery pressure is mildly to moderately increased. Aorta: The aortic root size in 2D measures 3.4 cm. The ascending aorta measures 3.6 cm. Aorta Measurements AoRoot, 2D is 3.4 cm. Pericardium: A pericardial fat pad is present. Trivial pericardial effusion. Findings Left Ventricle: Patient: SEJAL MCCRAY Study Date: 05/22/2018 Page 2 of 3 08:51 AM Normal global systolic left ventricular function. The ejection fraction, measured by Simpsons method, is 59 %. EF range is estimated at 55 % - 60 %. There is mild concentric left ventricular hypertrophy. There is no regional wall motion abnormalities. Cannot determine LAP and Diastolic Dysfunction Grade. IAS: An agitated saline study was performed and was positive for intracardiac shunting. Mitral Valve: Mitral valve appears structurally normal. Mild mitral regurgitation. There is mitral thickening. Mitral Valve Measurements MV PGmean is 4 mmHg. Aortic Valve: Aortic leaflets are structurally normal. Mild to moderate aortic regurgitation is present. There is aortic sclerosis present. Tricuspid Valve: The tricuspid leaflets do not appear to coapt completely. Moderate tricuspid regurgitation. Right Ventricular systolic pressure is measured at 48 mmHg. Pulmonary artery pressure is mildly to moderately increased. Pulmonic Valve: Pulmonic leaflets are structurally normal. Mild pulmonic valve regurgitation is present. Aorta: The aortic root size in 2D measures 3.4 cm. The ascending aorta measures 3.6 cm. Aorta Measurements AoRoot, 2D is 3.4 cm. IVC: The inferior vena cava is normal in size. Pericardium: A pericardial fat pad is present. Trivial pericardial effusion. Exam Details Procedure Ordered: Echo with Agitated Saline Procedure Status: Routine study Image Quality: Adequate Facility Location: Cardiac Echo 1 (No Signature Object) Patient: SEJAL MCCRAY Study Date: 05/22/2018 Page 3 of 3 08:51 AM [id number]
--- NOTE | 2018-05-22 15:16 | NEUROPROG ---
Assessment: 1. Stroke The echocardiogram came back showing intracardiac shunting with agitated saline. Therefore, the question of paradoxical embolus was raised. We will check stat bilateral lower extremity ultrasounds to exclude DVT prior to discharge today. If there is a DVT, the nurse will contact Hospital Medicine for further recommendations and treatment as an inpatient. If bilateral lower extremity ultrasounds are negative for DVT, then he can discharge home as planned with prolonged ECG monitoring, aspirin, statin, Cardiology and neurology follow-up. Objective: Vital Signs Temp Pulse Resp BP Pulse Ox 36.6 C 83 25 H 97/62 L 93 05/22/18 12:00 05/22/18 12:00 05/22/18 12:00 05/22/18 12:00 05/22/18 12:00 05/21/18 05/22/18 05/23/18 05:59 05:59 05:59 Intake Total 400 Balance 400 PT 13.2 SEC (12.0-15.0) 05/21/18 18:34 INR 1.04 (0.83-1.16) 05/21/18 18:34 Allergies/Adverse Reactions: No Known Allergies Allergy (Verified 05/21/18 17:54)
[2018-05-22 15:23] VITALS: BP 122/72
--- NOTE | 2018-05-22 16:51 | HOSPPROG ---
Hospitalist Progress Note Assessment/Plan: Reviewed ECHO, D/W Cards and Dr Bourgeois. US LE negative DC home Follow up with Dr Bourgeois, cardiology. Objective: Vital Signs Temp Pulse Resp BP Pulse Ox 36.5 C 75 16 122/72 H 95 05/22/18 15:23 05/22/18 15:23 05/22/18 15:23 05/22/18 15:23 05/22/18 15:23 05/21/18 05/22/18 05/23/18 05:59 05:59 05:59 Intake Total 400 Balance 400 PT 13.2 SEC (12.0-15.0) 05/21/18 18:34 INR 1.04 (0.83-1.16) 05/21/18 18:34 ICD10 Worksheet Patient Problems: Problems Problem Status Onset Acute ischemic stroke Acute
--- NOTE | 2018-05-25 10:49 | CPEKG ---
Test Reason : OPEN Blood Pressure : / mmHG Vent. Rate : 072 BPM Atrial Rate : 072 BPM P-R Int : 218 ms QRS Dur : 090 ms QT Int : 394 ms P-R-T Axes : 078 055 083 degrees QTc Int : 432 ms Sinus rhythm Borderline prolonged MD interval Abnormal R-wave progression, early transition Confirmed by Brandon Dial ([id number]) on 05/25/2018 10:48:50 AM Referred By: Meghan Lockwood Confirmed By:Brandon Dial
== END 2018-05-22 18:16 | disposition home or self-care (01) | DRG 66 ==
LOC: OBSVTOIN 20:51 → F3N 21:40
PROVIDERS: ADMIT Internal Medicine; ATTEND Internal Medicine
DX: I63.411 Cerebral infarction due to embolism of right middle cerebral artery (principal); R47.81 Slurred speech; R47.02 Dysphasia; I10 Essential (primary) hypertension; K57.30 Diverticulosis of large intestine without perforation or abscess without bleeding; N40.0 Benign prostatic hyperplasia without lower urinary tract symptoms; E89.0 Postprocedural hypothyroidism; Z85.850 Personal history of malignant neoplasm of thyroid; K21.9 Gastro-esophageal reflux disease without esophagitis
CPT/HCPCS: 70551-PN; 82435-PO; 82565-PO; 82947-PO; 84132-PO; 84295-PO; 84484-ER; 84520-PO; 85014-ER; 92523-GN; 97161-GP; 97166-GO; A9585; J1650

== ENCOUNTER 2018-05-31 19:48 | Emergency (ER) | payer OTHER ==
[2018-05-31 20:04] VITALS: BP 119/80
--- NOTE | 2018-05-31 20:17 | EDPHY ---
H & P Stated Complaint: palpitations at 1730, wearing monitor, cardiology told to come in Time Seen by Provider: 05/31/18 19:55 HPI/ROS: CHIEF COMPLAINT: Irregular heartbeat HISTORY OF PRESENT ILLNESS: 77-year-old male presents with irregular heartbeat. This afternoon he went for a walk and felt fine. Afterwards he was sitting on the couch, stood up and felt dizzy. This is not unusual for him as he often feels dizzy when he stands up. He then noticed some palpitations. He checked his heartbeat on his apple watch and his heartbeat was irregular. He called his tray room worker who advised him to come in for an EKG. He was recently admitted for TIA workup and is taking aspirin 325 mg daily. No prior history of atrial fibrillation. REVIEW OF SYSTEMS: complete 10 point ROS reviewed and is negative except for the noted elements in the HPI - Personal History Current Tetanus/Diphtheria Vaccine: Yes Current Tetanus Diphtheria and Acellular Pertussis (TDAP): Yes - Medical/Surgical History Hx Asthma: No Hx Chronic Respiratory Disease: No Hx Diabetes: No Hx Cardiac Disease: No Hx Renal Disease: No Hx Cirrhosis: No Hx Alcoholism: No Hx HIV/AIDS: No Hx Splenectomy or Spleen Trauma: No Other PMH: thyroidectomy, diverticulosis - Social History Smoking Status: Never smoked - Physical Exam Exam: General Appearance: Alert, pleasant Eyes: Pupils equal and round, no conjunctival pallor or injection ENT, Mouth: Mucous membranes moist Neck: Normal inspection Respiratory: Lungs are clear to auscultation Cardiovascular: Regular rhythm with occasional ectopic beat Gastrointestinal: Abdomen is soft and nontender Neurological: A&O, nonfocal, normal gait Skin: Warm and dry Extremities: Normal inspection Psychiatric: Mood and affect normal Constitutional: Initial Vital Signs Heart Rate 79 05/31/18 19:50 Respiratory Rate 18 05/31/18 19:50 Blood Pressure 137/77 H 05/31/18 19:50 O2 Sat (%) 96 05/31/18 19:50 O2 Delivery Mode Room Air Allergies/Adverse Reactions: No Known Allergies Allergy (Verified 05/31/18 19:50) Home Medications: Medication Instructions Recorded Calcium Carbonate 1,000 mg PO DAILY 10/03/17 Cholecalciferol Vit D3 [Vitamin D3 1,000 iunits PO HS 10/03/17 (*)] Citrucel 1 tbs PO BID 10/03/17 Levothyroxine [Synthroid 75 mcg 75 mcg PO HS 10/03/17 (*)] Omeprazole 20 mg PO HS 10/03/17 Sildenafil Citrate 100 mg PO VALENCIA 10/03/17 Calcium Carbonate [Tums 500MG (*)] 1,000 mg PO HS 05/21/18 Aspirin [Aspirin 325 mg (*)] 325 mg PO DAILY #120 tab 05/22/18 Aspirin EC 325 mg (*) 05/31/18 Medical Decision Making - Diagnostics EKG Interpretation: Normal sinus rhythm, rate 77, multiple PACs, PVC. Interpretation: Abnormal EKG ED Course/Re-evaluation: This pt presents with palpitations. EKG reveals PAC's/PVC's. Placed on tapper supervisor which revealed PAC/PVC, no Afib or other significant dysrhythmia. Labs remarkable only for possible dehydration (BUN/creat), IV NS 500 ml given. Pt continued to have asymptomatic PAC's after IVF, will f/u cards. TSH pending on d/c. Differential Diagnosis: Includes though is not limited to atrial fibrillation, atrial flutter, SVT, ventricular dysrhythmia. - Data Points Laboratory Results: Laboratory Results 05/31/18 20:10 05/31/18 20:10 Medications Given: Discontinued Medications Sodium Chloride (Ns) 500 mls @ 1,000 mls/hr IV EDNOW ONE PRN Reason: Protocol Stop: 05/31/18 20:47 Last Admin: 05/31/18 20:26 Dose: 500 mls Departure - Departure Disposition: Home, Routine, Self-Care Clinical Impression: Premature atrial contractions Condition: Good Instructions: Premature Atrial Contractions (ED) Additional Instructions: Return for worsening symptoms or any concerns. Referrals: Saud Yee MD [Primary Care Provider] - As per Instructions [facility] [Provider Group] - As per Instructions
[2018-05-31] MEDS ORDERED: NS 500 ML IV ONE (20:18)
[2018-05-31 20:24] LABS: PLATELET COUNT 171 10^3/uL (150-400)
--- NOTE | 2018-05-31 23:04 | CPEKG ---
Test Reason : OPEN Blood Pressure : / mmHG Vent. Rate : 077 BPM Atrial Rate : 080 BPM P-R Int : 210 ms QRS Dur : 089 ms QT Int : 383 ms P-R-T Axes : 064 051 068 degrees QTc Int : 434 ms Sinus rhythm Multiple premature complexes, vent & supraven Abnormal R-wave progression, early transition Confirmed by Lucero Mcintosh ([id number]) on 05/31/2018 11:04:00 PM Referred By: Lucero Mcintosh Confirmed By:Lucero Mcintosh
== END 2018-05-31 21:31 | disposition home or self-care (01) ==
DX: I49.1 Atrial premature depolarization (principal)

== ENCOUNTER 2018-07-02 09:09 | Observation (INO) | payer OTHER ==
[2018-07-02] MEDS ORDERED: DIAZEPAM 5 MG TAB PO ONE (09:12)
[2018-07-02] MEDS ORDERED: ASPIRIN EC 325 MG TAB PO ONE ×2 (09:12→09:26)
[2018-07-02] MEDS ORDERED: NS 1,000 ML IV ONE (09:12)
[2018-07-02] MEDS ORDERED: diphenhydrAMINE 25 MG CAP PO ONE ×2 (09:12→09:26)
[2018-07-02] MEDS ORDERED: FAMOTIDINE 20 MG TAB PO ONE (09:12)
[2018-07-02] MEDS ORDERED: FAMOTIDINE 20 MG TAB ONE (09:26)
[2018-07-02] MEDS ORDERED: DIAZEPAM 5 MG TAB ONE (09:27)
[2018-07-02] MEDS ORDERED: LIDOCAINE 1% 300 MG/30 ML SDV ONE (09:49)
[2018-07-02] MEDS ORDERED: HEPARIN 10,000 UNIT/10 ML MDV (1,000 UNIT/ML) ONE (09:50)
[2018-07-02] MEDS ORDERED: VERAPAMIL 5 MG/2 ML VIAL ONE (09:50)
[2018-07-02] MEDS ORDERED: fentaNYL 100 MCG/2 ML INJ ONE (09:50)
[2018-07-02] MEDS ORDERED: IOPAMIDOL (ISOVUE-370) 150 ML BTL IV ONE (09:50)
[2018-07-02] MEDS ORDERED: MIDAZOLAM 2 MG/2 ML VIAL ONE (09:50)
[2018-07-02 09:52] LABS: PLATELET COUNT 170 10^3/uL (150-400)
[2018-07-02 09:55] LABS: PROTIME(PATIENT) 12.8 SEC (12.0-15.0)
--- NOTE | 2018-07-02 10:34 | PDPROPOC ---
Sedation Plan of Care Sedation Plan of Care: vital signs stable, mental status noted, patient educated of risks, benefits, alternatives, patient can tolerate sedation ASA Classification: ASA 2 Planned drugs: fentanyl, midazolam Mallampati Score: Class 2 Mallampati Reference Image: Patient passed 3-3-2 rule?: Yes
--- NOTE | 2018-07-02 10:42 | PDHPUP ---
History & Physical Update H&P update statement: This history and physical update is based on an assessment of the patient which was completed after admission or registration (within 24 hours), but prior to the surgery/procedure. H&P update: H&P reviewed & patient examined, no change in patient's condition since H&P completed
--- NOTE | 2018-07-02 11:08 | PDDXCAT ---
Diagnostic Cath Note - . Date: 07/02/18 Calender Let Off Helper: Yojana Indication: other (abnormal ECG, ventricular tachycardia) - Procedure Access: left wrist Procedure: left heart catheterization, coronary angiography, left ventriculogram , other (PTCA and stent of the ramus vessel with 2.25 X16 Synergy drug eluting stent BENITO) - Materials Left Heart Cath size: 5F Left Heart Cath materials: JL4.0, JR4.0, pigtail - Findings-Left Heart Catheterization LM: The left main is 6mm in size and trifurcates into an LAD, Ramus and Circumflex system. LAD: The left anterior descending artery is 3.5mm in size. There is no evidence of flow limiting obstruction. There is SAI III flow. LCX: The left circumflex is 2.5mm in size. The vessel gives rise to an important obtuse marginal. There is SAI III flow. RCA: The right coronary artery is 2.5mm in size and dominant. There is no evidence of flow limiting disease. There is SAI III flow throughout. Ramus: The Ramus is 2.25mm in size. There is a 95% lesion near the ostial takeoff of the left main. There is SAI III flow. EDP: 17mmHg LVEF: 65% Wall motion: On the LV gram there is normal LV systolic function. The EF is 65% . There are no resting segmental wall motion abnormalities. The visualized portion of the thoracic aortic valve reveals three sinuses of valsalva most consistent with a trileaflet valve. There is no gradient on pullback across the aortic valve. There is no evidence of sharri dissection. The aorta is dilated but nor frankly aneurysmal. - Findings-Right Heart Catheterization AO: 116// Complications: None Estimated blood loss: <50ml Closure method: TR Band Assessment: The patient has viejas vessel coronary disease with a dominant right coronary system. The left main trifurcates. There is a 95% obstruction of the Ramus near the ostial take off of the left main. Plan: Aspirin 81mg along with Plavix 75mg daily should be continued for at least 1 year following drug eluting stent implantation. No elective surgery for the first 3 months. Decisions to stop dual antiplatelet therapy before 1 year should involve our office [facility] ([phone]). Intervention: A 3 [place] JR 4.5 guiding catheter was used for guide catheter support. A 0.014 " 180 cm Intuition Wire was advanced across the lesion in question under direct fluoroscopic and angiographic guidance. A 2.0 x 12mm Emerge balloon was advanced over the Intuition wire and spanned the lesion in the ostial and proximal Ramus vessel. The balloon was inflated at 6atm for 20 seconds with four serial inflations. The lesion was stented with a 2.25 x 16mm Synergy drug eluting stent. The stent delivery system balloon was deployed at 14atm for 27 seconds and then inflated at a maximum of 18atm for 13 seconds. There was 5% residual post stent implantation with SAI III flow pre and post stent implantation. Patient Problems: Problems Problem Status Onset Acute ischemic stroke Acute
[2018-07-02] MEDS ORDERED: niCARdipine 25 MG/10 ML VIAL IV ONE (11:34)
[2018-07-02] MEDS ORDERED: OXYCODONE/APAP 5/325 TAB PO PRN (12:08)
[2018-07-02] MEDS ORDERED: CLOPIDOGREL BISULFATE 75 MG TAB PO ONE (12:08)
[2018-07-02] MEDS ORDERED: TEMAZEPAM 15 MG CAP PO PRN (12:08)
[2018-07-02] MEDS ORDERED: HYDROCODONE/APAP 5/325 TAB PO PRN (12:08)
[2018-07-02] MEDS ORDERED: NITROGLYCERIN 0.4 MG BTL SL PRN (12:08)
[2018-07-02] MEDS ORDERED: ONDANSETRON 4 MG/2 ML VIAL IVP PRN (12:08)
[2018-07-02] MEDS ORDERED: LORazepam 2 MG/ML INJ IVP PRN (12:08)
[2018-07-02] MEDS ORDERED: ATROPINE SULFATE 1 MG/10 ML SYR IVP PRN (12:08)
[2018-07-02] MEDS ORDERED: NS 1,000 ML IV SCH (12:15)
[2018-07-02] MEDS ORDERED: ALPRAZolam 0.25 MG TAB PO PRN (12:30)
--- NOTE | 2018-07-02 13:13 | CPEKG ---
Test Reason : OPEN Blood Pressure : / mmHG Vent. Rate : 084 BPM Atrial Rate : 133 BPM P-R Int : 208 ms QRS Dur : 087 ms QT Int : 372 ms P-R-T Axes : 070 047 072 degrees QTc Int : 440 ms Sinus rhythm with multiple pac's artifact note Abnormal R-wave progression, early transition Confirmed by Celestino Nicolas ([id number]) on 07/02/2018 1:13:10 PM Referred By: Brandon Dial Confirmed By:Celestino Nicolas
--- NOTE | 2018-07-02 13:15 | CPEKG ---
Test Reason : OPEN Blood Pressure : / mmHG Vent. Rate : 065 BPM Atrial Rate : 066 BPM P-R Int : 215 ms QRS Dur : 089 ms QT Int : 429 ms P-R-T Axes : 068 036 063 degrees QTc Int : 447 ms Sinus rhythm Borderline prolonged [place] interval Abnormal R-wave progression, early transition Confirmed by Celestino Nicolas ([id number]) on 07/02/2018 1:14:58 PM Referred By: Brandon Dial Confirmed By:Celestino Nicolas
[2018-07-02] MEDS ORDERED: LEVOTHYROXINE 75 MCG TAB PO SCH (21:00)
[2018-07-02] MEDS ORDERED: CHOLECALCIFEROL VIT D3 1,000 UNITS TAB PO SCH (21:00)
[2018-07-02] MEDS ORDERED: PANTOPRAZOLE SODIUM 40 MG TAB PO SCH (21:00)
[2018-07-02] MEDS ORDERED: CALCIUM CARBONATE 500 MG CHEWABLE TAB PO SCH (21:00)
[2018-07-02] MEDS ORDERED: ATORVASTATIN CALCIUM 10 MG TAB PO SCH (22:00)
[2018-07-03 04:23] LABS: PLATELET COUNT 153 10^3/uL (150-400)
[2018-07-03 07:50] VITALS: BP 122/68
[2018-07-03] MEDS ORDERED: ASPIRIN EC 325 MG TAB PO SCH (09:00)
[2018-07-03] MEDS ORDERED: PSYLLIUM METAMUCIL 1 PKT PO SCH (09:00)
[2018-07-03] MEDS ORDERED: CLOPIDOGREL BISULFATE 75 MG TAB PO SCH (09:00)
--- NOTE | 2018-07-03 18:28 | GDS ---
[f rep st] DISCHARGE SUMMARY ADMIT DIAGNOSIS: Chest pain. DISCHARGE DIAGNOSIS: 1. Chest pain. 2. Coronary artery disease. 3. Percutaneous transluminal coronary angioplasty of the ramus. HOSPITAL COURSE: This gentleman came into the hospital with chest discomfort. He was taken to the the medical center geophysical laboratory supervisor by Dr. Brandon Dial, finding a 95% lesion near the ostial takeoff of the left main. PTCA and drug-eluting stent was placed to the ramus. Ejection fraction 65%. He tolerated the proced ure well. He then was taken to PCU for overnight observation where he has done well. He has been up ambulating with no problems. No dizziness, lightheadedness, shortness of breath, or chest pain. Telemetry alejandra ws a regular sinus rhythm. Vital signs are stable. He will go home on Plavix and aspirin for 1 year . EXAM: VITAL SIGNS: On day of discharge, blood pressure 122/68, pulse rate 75 and regular, temperatu re 36.6. EKG shows normal sinus rhythm with acute occasional premature atrial contractions. HEART: Rate regular. No murmurs, rubs, or gallops. LUNGS: Sounds are clear to auscultation. No wheezes, rales, or rhonchi. SKIN: Wrist access site is intact with no bleeding, induration, or pain. Sligh t ecchymosis noted. EXTREMITIES: Radial and ulnar pulses are 2+ with good distal capillary refill. DISCHARGE MEDICATIONS: He will go home on vitamin D3 1000 units at bedtime, sildenafil 100 mg as nee ded, Monopril 20 mg at bedtime, Synthroid 75 mcg at bedtime, Tums 1000 mg at bedtime, aspirin 325 mg daily, Aleve 220 mg twice daily as needed, Xanax 0.5 mg as needed, Lipitor 10 mg daily, Metamucil 1 p acket daily, Plavix 75 mg daily. DISCHARGE PLAN: 1. He will go home on aspirin 81 mg, along with Plavix 75 mg daily. This should be continued for at least 1 year following the drug-eluting stent implantation. No elective surgery for the first 3 mon ths,. Decision to stop dual anti-platelet therapy before 1 year should involve the [facility] off ice. 2. Followup visit in 1 to 2 weeks at [facility] appointment has been made with CHYNA Durbin. 3. Wrist precautions were given written and verbally with good understanding. 4. Should he have any questions or concerns, he will call the [facility] office. 5. At this time, he currently is stable for discharge. /[id number]/MODL
--- NOTE | 2018-07-05 10:20 | CPEKG ---
Test Reason : OPEN Blood Pressure : / mmHG Vent. Rate : 074 BPM Atrial Rate : 075 BPM P-R Int : 216 ms QRS Dur : 090 ms QT Int : 407 ms P-R-T Axes : 064 070 088 degrees QTc Int : 452 ms Sinus rhythm Atrial premature complex Borderline prolonged AK interval Abnormal R-wave progression, early transition Confirmed by Celestino Nicolas ([id number]) on 07/05/2018 10:20:12 AM Referred By: Brandon Dial Confirmed By:Celestino Nicolas
== END 2018-07-03 12:02 | disposition home or self-care (01) ==
LOC: FCATH 09:09 → F2W 12:08
PROVIDERS: ADMIT Internal Medicine Cardiovascular Disease; ATTEND Internal Medicine Cardiovascular Disease
PROC: B2111ZZ Fluoroscopy of Multiple Coronary Arteries using Low Osmolar Contrast (ICD-10-PCS; principal; 2018-07-02)
PROC: 027034Z Dilation of Coronary Artery, One Artery with Drug-eluting Intraluminal Device, Percutaneous Approach (ICD-10-PCS; principal; 2018-07-02)
PROC: 4A023N7 Measurement of Cardiac Sampling and Pressure, Left Heart, Percutaneous Approach (ICD-10-PCS; principal; 2018-07-02)
PROC: B2151ZZ Fluoroscopy of Left Heart using Low Osmolar Contrast (ICD-10-PCS; principal; 2018-07-02)
DX: I25.10 Atherosclerotic heart disease of native coronary artery without angina pectoris (principal); I47.2 Ventricular tachycardia
CPT/HCPCS: 93005; 93458; C1725; C1769; C1874; C1887; C9600; G0378; J1644; J2250; J3010; Q9967

== ENCOUNTER 2018-08-10 06:31 | Day surgery (SDC) | payer OTHER ==
[2018-08-10] MEDS ORDERED: LIDOCAINE 1% 5 ML SDV SC ONE (06:34)
--- NOTE | 2018-08-10 09:06 | CPIP ---
[f rep st] INVASIVE CARDIAC PROCEDURE DATE OF PROCEDURE: 08/10/2018 PROCEDURE PERFORMED: [facility] [facility] Confirm implantable loop recorder. 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 MRI demonstrated right-sided CVA. He has been evaluated by Neurology with Dr. Bourgeois. He presents today for plan for a [facility] implantable loop recorder. PROCEDURE IN DETAIL: After informed consent was obtained for implantable loop recorder, the patient was prepped and draped in sterile fashion. Using 1% lidocaine, 4th intercostal space 2 cm from midli ne was anesthetized. Anesthesia with 1% lidocaine was placed under the skin, under the track. Using a #15 scalpel blade, incision was made in the skin. Following use of scalpel blade, the blade provi ded in the [facility] [facility] kit was used to size the incision. Device was tracked down under the skin and wa s deployed successfully without difficulty. Patient tolerated the procedure well. Currently, at the time of dictation, hemostasis has been achieved. He is on dual antiplatelet therapy. Initial device interrogation demonstrates appropriate capture. Serial number of [id number]. PLAN: 1. Patient will be given instructions postoperatively. 2. Patient will follow up in 1 week for device and wound check. 3. Patient will continue current medical therapy. /[id number]/MODL
== END 2018-08-10 09:21 | disposition home or self-care (01) ==
LOC: FCATH 06:31
PROVIDERS: ATTEND Internal Medicine Cardiovascular Disease
PROC: 0JH602Z Insertion of Monitoring Device into Chest Subcutaneous Tissue and Fascia, Open Approach (ICD-10-PCS; principal; 2018-08-10)
DX: I63.9 Cerebral infarction, unspecified (principal); I25.10 Atherosclerotic heart disease of native coronary artery without angina pectoris
CPT/HCPCS: C1764